=== PATIENT | female | born 1965 | race African-American/Black ===

== ENCOUNTER 2018-04-10 17:00 | Inpatient (IN) ==
[2018-04-10] MEDS ORDERED: fentaNYL 100 MCG/2 ML VIAL IV STA (17:27)
[2018-04-10] MEDS ORDERED: ONDANSETRON 4 MG/2 ML VIAL IV STA (17:27)
[2018-04-10 17:53] LABS: Basophils # 0.1 10*3/uL (0.0-0.2); Basophils % 0.4 % (0.0-0.8); Eosinophils # 0.2 10*3/uL (0.0-0.87); Eosinophils % 1.5 % (0.00-10.9); Hematocrit 37.1 VOL% (35.7-47.0); Hemoglobin 11.5 GM/DL (12.0-16.0); Immature Granulocytes % 0.5 %; Immature Granulocytes Absolute 0.06 #; Lymphocytes # 1.6 10*3/uL (1.4-4.0); Mean Corpuscular Hemoglobin 24 PG (27-34); Mean Platelet Volume 11.5 FL (9.6-12.0); Monocytes # 0.6 10*3/uL (0.11-0.8); Monocytes % 4.9 % (1.7-12.7); Neutrophils # 9.8 10*3/uL (1.4-7.4); Neutrophils % 79.7 % (38.7-73.9); Platelet Count 285 T/CUMM (130-400); Red Blood Count 4.88 MC/CUMM (3.8-5.5); Red Cell Distribution Width 14.2 % (9.3-17.3); White Blood Count 12.4 T/CUMM (4-12)
[2018-04-10 18:01] LABS: INR 1.1; PT Patient Result 11.7 SECS
[2018-04-10 18:20] LABS: Alanine Aminotransferase 17 U/L (13-56); Albumin 3.4 G/DL (3.4-5.0); Alkaline Phosphatase 144 U/L (45-117); Aspartate Amino Transferase 13 U/L (0-37); Bilirubin,Total < 0.39 MG/DL (0.2-1.0); Blood Urea Nitrogen 9 MG/DL (7-18); Calcium 8.7 MG/DL (8.5-10.1); Glucose 154 MG/DL (74-106); Osmolality,Calculated 276.7 MOS/KG (273-304); Potassium 3.6 MMOL/L (3.5-5.1); Sodium 138 MMOL/L (136-145); Total Protein 7.3 G/DL (6.4-8.3)
[2018-04-10] MEDS ORDERED: ONDANSETRON 4 MG/2 ML VIAL IV PRN (18:31)
[2018-04-10] MEDS: fentaNYL 100 MCG/2 ML VIAL IV PRN (22:03)
[2018-04-10] MEDS: SODIUM CHLORIDE 0.45% 1,000 ML IV SCH (22:05)
[2018-04-11] MEDS: fentaNYL 100 MCG/2 ML VIAL IV PRN (03:17)
[2018-04-11] MEDS ORDERED: ceFAZolin 1,000 MG VIAL ONE ×2 (07:50→08:03)
[2018-04-11] MEDS ORDERED: SEVOFLURANE 1 UNIT/15 MINUTE INH ONE (09:38)
[2018-04-11] MEDS ORDERED: PROPOFOL 200 MG/20 ML VIAL IV ONE (09:38)
[2018-04-11] MEDS ORDERED: MIDAZOLAM 2 MG/2 ML VIAL ONE (09:39)
[2018-04-11] MEDS ORDERED: fentaNYL 100 MCG/2 ML VIAL ONE (09:39)
[2018-04-11] MEDS ORDERED: HYDROmorphone 2 MG/1 ML VIAL ONE (09:39)
[2018-04-11] MEDS ORDERED: ACETAMINOPHEN 1,000 MG/100 ML VIAL IV ONE (09:40)
[2018-04-11] MEDS ORDERED: GLYCOPYRROLATE 0.4 MG/2 ML VIAL ONE (09:40)
[2018-04-11] MEDS ORDERED: ONDANSETRON 4 MG/2 ML VIAL ONE (09:40)
[2018-04-11] MEDS ORDERED: DEXAMETHASONE 10 MG/1 ML VIAL ONE (09:40)
[2018-04-11] MEDS ORDERED: PHENYLEPHRINE 1 MG/10 ML SYRINGE IV ONE (09:40)
[2018-04-11] MEDS ORDERED: KETOROLAC 30 MG/1 ML VIAL ONE (09:40)
[2018-04-11] MEDS: ASPIRIN EC 325 MG TABLET PO SCH (10:27)
[2018-04-11] MEDS: ceFAZolin 1,000 MG in SYRINGE 1 EACH IV SCH ×2 (10:27→17:59)
[2018-04-11] MEDS: SODIUM CHLORIDE 0.45% 1,000 ML IV SCH (14:31)
[2018-04-11] MEDS: oxyCODONE/ACETAMINOPHEN 5-325 MG TABLET PO PRN (21:26)
[2018-04-12] MEDS: ceFAZolin 1,000 MG in SYRINGE 1 EACH IV SCH ×2 (01:05→09:18)
[2018-04-12] MEDS: SODIUM CHLORIDE 0.45% 1,000 ML IV SCH (03:21)
[2018-04-12] MEDS: ASPIRIN EC 325 MG TABLET PO SCH (09:18)
[2018-04-12] MEDS: oxyCODONE/ACETAMINOPHEN 5-325 MG TABLET PO PRN (11:48)
[2018-04-12 13:29] VITALS: BP 148/82
== END 2018-04-12 13:55 | disposition home or self-care (01) | DRG 493 ==
LOC: N.ED 17:00 → N.EDINP 18:29 → N.3E 18:48
PROVIDERS: ADMIT Orthopaedic Surgery; ATTEND Orthopaedic Surgery